=== PATIENT | male | born 1950 | race African-American/Black ===

== ENCOUNTER 2016-09-29 20:59 | Inpatient (IN) | payer SELFPAY ==
[2016-09-29 20:30] VITALS: O2SAT 100
[2016-09-29] MEDS ORDERED: KETAMINE HCL 500 MG/5 ML VIAL ONE (21:11)
[2016-09-29] MEDS ORDERED: SUGAMMADEX SODIUM 200 MG/2 ML VIAL IV PUSH ONE ×2 (21:11)
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
[2016-09-29] MEDS ORDERED: ONDANSETRON HCL 4 MG/2 ML VIAL IV PRN (21:30)
[2016-09-29] MEDS ORDERED: LACTATED RINGER'S 1000 ML INJ 1,000 ML IV SCH (21:30)
[2016-09-29] MEDS ORDERED: NALOXONE HCL 0.4 MG/ML AMP IV PRN (21:30)
[2016-09-29] MEDS ORDERED: SODIUM CHLORIDE 0.9% FLUSH 10 ML FLUSH IV FLUSH PRN (21:30)
[2016-09-29] MEDS ORDERED: Post-op Orders (for Pharmacy) MISC XX ONE (21:30)
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
[2016-09-29 21:45] LABS: I-STAT POTASSIUM 3.4 MMOL/L (3.5-4.9)
[2016-09-29] MEDS ORDERED: GENTAMICIN SULFATE 80 MG/2 ML VIAL IM SCH (21:45)
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
[2016-09-29 21:46] LABS: AUTOMATED NEUTROPHIL # 6.1 TH/MM3 (1.8-7.7); BASOPHIL % 0.5 % (0.0-2.0); EOSINOPHIL # 0.1 TH/MM3 (0-0.4); EOSINOPHIL % 1.3 % (0.0-4.0); HEMATOCRIT 26.2 % (39.0-51.0); HEMO FLAGS DIFF FINAL; MEAN CELL VOLUME 90.4 FL (80.0-100.0); MEAN CORPUSCULAR HEMOGLOBIN 29.9 PG (27.0-34.0); MEAN CORPUSCULAR HGB CONC 33.1 % (32.0-36.0); MONO % 4.9 % (0.0-8.0); NEUT % 70.3 % (16.0-70.0); PLATELET COUNT 104 TH/MM3 (150-450); RED CELL DISTRIBUTION WIDTH 14.1 % (11.6-17.2); WHITE BLOOD COUNT 8.6 TH/MM3 (4.0-11.0)
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
[2016-09-29] MEDS ORDERED: IOHEXOL 350 MG/ML 10 ML VIAL (for RAD DIAG) IV ONE (21:49)
[2016-09-29] MEDS ORDERED: PROPOFOL 1000 MG/100 ML INJ 100 ML ONE (21:55)
[2016-09-29 21:57] LABS: INTERNATIONAL NORMALIZED RATIO 1.4 RATIO; PROTHROMBIN TIME - PATIENT 15.4 SEC (9.8-11.6)
[2016-09-29] MEDS ORDERED: GENTAMICIN/SOD CHL 80 MG/100 ML IV SCH (22:00)
[2016-09-29] MEDS ORDERED: PANTOPRAZOLE SODIUM 40 MG VIAL IV SCH (22:00)
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
[2016-09-29 23:27] LABS: AUTOMATED NEUTROPHIL # 4.8 TH/MM3 (1.8-7.7); BASOPHIL % 0.3 % (0.0-2.0); EOSINOPHIL # 0.1 TH/MM3 (0-0.4); EOSINOPHIL % 1.1 % (0.0-4.0); HEMATOCRIT 37.8 % (39.0-51.0); LYMPHOCYTE # 1.5 TH/MM3 (1.0-4.8); MEAN CELL VOLUME 91.8 FL (80.0-100.0); MEAN CORPUSCULAR HEMOGLOBIN 29.7 PG (27.0-34.0); MEAN CORPUSCULAR HGB CONC 32.4 % (32.0-36.0); NEUT % 72.6 % (16.0-70.0); PLATELET COUNT 27 TH/MM3 (150-450); RED BLOOD COUNT 4.11 MIL/MM3 (4.50-5.90); RED CELL DISTRIBUTION WIDTH 14.7 % (11.6-17.2); WHITE BLOOD COUNT 6.6 TH/MM3 (4.0-11.0)
[2016-09-29 23:31] LABS: HEMO FLAGS AUTO DIFF
[2016-09-29 23:39] LABS: BLOOD GAS BASE EXCESS -18.5 mmol/L (-2-2); BLOOD GAS CARBOXYHEMOGLOBIN 0.4 % (0-4); BLOOD GAS HCO3 10 mmol/L (22-26); BLOOD GAS METHEMOGLOBIN 1.1 % (0-2); BLOOD GAS O2 HGB SATURATION 96 % (90-100); BLOOD GAS OXYGEN CONTENT 16.4 Vol % (12.0-20.0); BLOOD GAS PCO2 43 mmHg (38-42); BLOOD GAS PO2 128 mmHg (61-120); CRITICAL VALUE YES; DRAW SITE ALINE; FIO2 100 %; OXYGEN DEVICE OR SETTINGS; STAT YES; TEMP CORR TO 98.6; ULNAR PULSE PRESENT
[2016-09-30 00:04] LABS: PLATELET ESTIMATE SMEAR LOW (NORMAL); PLATELET MORPHOLOGY NORMAL (NORMAL); SCAN/DIFF AUTO DIFF CONFIRMED
[2016-09-30 00:06] LABS: INTERNATIONAL NORMALIZED RATIO ND RATIO
[2016-09-30 00:07] LABS: APTT (PATIENT) ND SEC (24.3-30.1)
[2016-09-30 00:08] LABS: FIBRINOGEN ND mg/dL (227-377); PROTHROMBIN TIME - PATIENT ND SEC (9.8-11.6)
--- NOTE | 2016-09-30 01:16 | RADRPT ---
EXAM DATE/TIME: 09/30/2016 00:01 [facility] COMPARISON: No previous studies available for comparison. INDICATIONS : Evaluate for any foreign bodies as there was no pre-surgery instrument count on this exploratory abdo jovani surgery. MEDICAL HISTORY : None. SURGICAL HISTORY : None. ENCOUNTER: Subsequent ACUITY: 1 day PAIN SCORE: Non-responsive. LOCATION: Bilateral entire abdomen FINDINGS: Supine view of the abdomen was performed. The abdominal bowel gas pattern is normal. No abnormal ma sses, calcifications, or organomegaly is seen. The osseous structures are unremarkable. Right femora l central line with tip at L4 level. CONCLUSION: Unremarkable abdomen. No surgical instruments. Sanket Lawrence MD on September 30, 2016 at 1:14 Board Certified Radiologist. This report was verified electronically.
[2016-09-30] MEDS ORDERED: fentaNYL CITRATE 250 MCG/5 ML AMP ONE (03:45)
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
[2016-09-30] MEDS ORDERED: ATROPINE SULFATE 1 MG/10 ML SYRINGE IV ONE (05:00)
[2016-09-30] MEDS ORDERED: SODIUM BICARBONATE 8.4% INJ 50 MEQ/50 ML SYR IV ONE ×2 (05:00)
[2016-09-30] MEDS ORDERED: NOREPINEPHRINE 4 MG/4 ML AMP IV ONE (05:00)
[2016-09-30] MEDS ORDERED: EPINEPHrine HCL (1:10,000) 1 MG/10 ML SYRINGE IV ONE ×2 (05:00)
[2016-09-30] MEDS ORDERED: CALCIUM CHLORIDE 10% SOLN 1 GRAM/10 ML SYR IV ONE (05:00)
[2016-09-30] MEDS ORDERED: SODIUM CHLORIDE 0.9% FLUSH 10 ML FLUSH IV FLUSH SCH (09:00)
[2016-09-30] MEDS ORDERED: DOCUSATE SODIUM 100 MG CAP PO SCH (09:00)
--- NOTE | 2016-09-30 12:20 | EKG ---
Date Performed: 09/29/2016 Time Performed: 22:05:37 PTAGE: 89 years EKG: ATRIAL FIBRILLATION WITH RAPID VENTRICULAR RESPONSE RIGHT BUNDLE BRANCH BLOCK ABNORMAL ECG WARNING: DATA QUALITY MAY AFFECT INTERPRETATION INTERPRETATION BASED ON A DEFAULT AGE OF 41 YEARS NO PREVIOUS TRACING DOCTOR: Nehemiah Ribera Interpretating Date/Time 09/30/2016 12:18:06
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
== END 2016-09-30 01:00 | disposition expired | DRG 959 ==
LOC: NEPI 20:59 → EDBD 21:28 → NEDA 21:28
PROVIDERS: ADMIT Surgery; ATTEND Surgery
PROC: 0DQB0ZZ Repair Ileum, Open Approach (ICD-10-PCS; 2016-09-29)
PROC: 0DQN0ZZ Repair Sigmoid Colon, Open Approach (ICD-10-PCS; 2016-09-29)
PROC: 0DQP0ZZ Repair Rectum, Open Approach (ICD-10-PCS; 2016-09-29)
PROC: 30233N1 Transfusion of Nonautologous Red Blood Cells into Peripheral Vein, Percutaneous Approach (ICD-10-PCS; 2016-09-29)
PROC: 04L Lower Arteries, Occlusion (ICD-10-PCS; principal; 2016-09-29 22:24)
DX: S35.511A Injury of right iliac artery, initial encounter (principal); S82.251B Displaced comminuted fracture of shaft of right tibia, initial encounter for open fracture type I or II; I48.91 Unspecified atrial fibrillation; S82.451B Displaced comminuted fracture of shaft of right fibula, initial encounter for open fracture type I or II; S36.438A Laceration of other part of small intestine, initial encounter; S36.530A Laceration of ascending [right] colon, initial encounter; S36.63XA Laceration of rectum, initial encounter; S36.533A Laceration of sigmoid colon, initial encounter; R00.1 Bradycardia, unspecified; V43.52XA Car driver injured in collision with other type car in traffic accident, initial encounter; Y92.410 Unspecified street and highway as the place of occurrence of the external cause; S31.119A Laceration without foreign body of abdominal wall, unspecified quadrant without penetration into peritoneal cavity, initial encounter
CPT/HCPCS: 36430; 70450; 71010; 71260; 72125; 72128; 72131; 72170; 73590; 74000; 74177; 82435; 82565; 82805; 82947; 84132; 84295; 84520; 85014; 85018; 85025; 85384; 85610; 85730; 86850; 86900; 86901; 86920; 93005; J0171; J0461; J3010; P9016; P9017; Q9967